=== PATIENT | female | born 1965 | race Caucasian/White ===

== ENCOUNTER → 2020-02-04 | Outpatient (CLI) | payer OTHER ==
[~2020-02-04] MED LIST: DIPH50CA PO; FAMO20TA5 PO; HYDR1TAB PO; METH4TAB PO
--- NOTE | 2020-02-04 10:49 | Diagnostic Imaging Report ---
Indication: Right wrist pain 2 views the right wrist show no fracture, dislocation or other acute abnormalities. Joint spaces well-maintained. Articular surfaces are smooth. IMPRESSION: Negative right wrist Dictated by: Dictated on workstation # [id number]
--- NOTE | 2020-02-04 10:50 | Diagnostic Imaging Report ---
Indication: Right knee pain 2 views the right knee show no fracture, dislocation or other acute abnormalities. IMPRESSION: Negative right knee Dictated by: Dictated on workstation # [id number]
--- NOTE | 2020-02-04 10:55 | Diagnostic Imaging Report ---
Indication: Back pain Lumbar spine AP lateral views of the lumbar spine shows a grade 1 spondylolisthesis at L4-L5 with slight disc space narrowing at L3-L4 and L4-L5. Spondylosis deformans with osteophytes forming anteriorly. IMPRESSION: Spondylosis deformans. Mild degenerative disc changes L3-L4. Mild degenerative disc changes L4-L5 with grade 1 spondylolisthesis. Dictated by: Dictated on workstation # [id number]
== END ==
LOC: RAD 10:01
PROVIDERS: ATTEND Family Medicine
DX: Z02.71 Encounter for disability determination (principal); M47.816 Spondylosis without myelopathy or radiculopathy, lumbar region; M51.36 Other intervertebral disc degeneration, lumbar region; M43.16 Spondylolisthesis, lumbar region; M25.531 Pain in right wrist; M25.561 Pain in right knee
CPT/HCPCS: 72100; 73100; 73560